=== PATIENT | male | born 1990 | race Caucasian/White ===

== ENCOUNTER 2019-02-23 13:17 | Emergency (ER) | payer MEDICAID, SELFPAY ==
[2019-02-23 13:18] VITALS: BP 125/69; PULSE 92; RESP 18; TEMP 36.6; O2SAT 99; BMI 28.5
[2019-02-23 13:20] VITALS: TEMP 36.6
--- NOTE | 2019-02-23 13:42 | ED.VISSUMM ---
- ER Visit Summary Date of Service: 02/23/19 Chief Complaint: Diarrhea after traveling to [place] History of Present Illness: The patient is a 29 M no significant past medical history. Patient states he traveled to [place] recently orange juice done and some coffee that he thinks he may remain with local water and now diarrhea. Denies any melena. No hematemesis. No fever. Mild abdominal cramping. No prior history. Recently was on amoxicillin for dental infection several weeks ago. Physical Examination: Young male no acute distress. Vital signs stable afebrile. HEENT exam unremarkable. Moist his membranes. Neck nontender. Lungs clear to auscultation bilaterally. Heart regular rhythm no murmur. Abdomen soft and nontender. Normal bowel sounds no peritoneal signs. Moves all 4. No edema. No rashes. Neurologically is awake and alert with no focal motor deficits. Test Results: None Emergency Department Course and Treatment: Discussed with patient that this very well may be traveler's diarrhea. We could do stool cultures a week just to treat him with Cipro 500 twice daily for 5 days which she preferred. Will be given his first dose of Cipro here in the ER. Treatment Plan: Cipro twice daily for 5 days. Plenty fluids and rest. Follow-up if not improving. Return if worse. Disposition: Discharge Impression: Traveler's diarrhea This note was generated with [employer] dictation software. It may contain incorrect words, spelling, and punctuation that were not noted in review of the chart prior to signing ED Disposition - Plan for ED Patient: Referrals: NOT,DEFINED [Primary Care Provider] -
--- NOTE | 2019-02-23 13:47 | ED.DEP ---
ED Disposition - Plan for ED Patient: Disposition: Home or Assisted Living Instructions: DIARRHEA, Bacterial (4y-Adult) Prescriptions: Ciprofloxacin [Cipro] 500 mg PO BID #10 tab Prescription Printed Referrals: Paul Musa MD [STAFF PHYSICIAN] - 3-5 Days if not improving Additional Instructions: Cipro 1 pill twice a day for 5 days. Plenty of fluids and rest. Follow-up with your doctor if not improving return if a lot worse.
[2019-02-23] MEDS: Ciprofloxacin 500 MG Tablet PO (13:55)
== END 2019-02-23 14:00 | disposition home or self-care (01) ==
LOC: ED 13:57
PROVIDERS: Emergency Provider Emergency Medicine
DX: R19.7 Diarrhea, unspecified (principal)
CPT/HCPCS: 99283

== ENCOUNTER 2019-05-27 22:10 | Emergency (ER) | payer MEDICAID, SELFPAY ==
[2019-05-27 22:11] VITALS: BP 156/83; PULSE 88; RESP 16; TEMP 36.3; O2SAT 99; BMI 31.5
--- NOTE | 2019-05-27 22:35 | EKG12_ITS ---
Test Reason : PALPITATIONS Blood Pressure : / mmHG Vent. Rate : 098 BPM Atrial Rate : 098 BPM P-R Int : 158 ms QRS Dur : 092 ms QT Int : 318 ms P-R-T Axes : 058 068 041 degrees QTc Int : 405 ms Normal sinus rhythm Normal ECG Confirmed by JENNIFER ALBERTS, CARISSA ([id number]), editor house organ ABDIAZIZ GOLDEN ([id number]) on 05/31/2019 11:16:43 AM Referred By: Confirmed By:CARISSA RODRIGUEZ MD
--- NOTE | 2019-05-27 22:35 | RAD_ITS ---
STUDY: X-RAY CHEST REASON FOR EXAM: Male, 29 years old. Chest palpitations TECHNIQUE: Single AP portable view of the chest. COMPARISON: None. FINDINGS: The lungs are clear and expanded. There is no demonstrated pleural abnormality. Normal size heart. Normal mediastinum and santos. Normal visualized pulmonary arteries. Normal visualized aortic arch and descending thoracic aorta. Normal visualized thoracic spine. Normal visualized ribs, clavicles, and shoulders. There is no demonstrated abnormality of the visualized soft tissue structures of the upper abdomen. RAD/Chest 1 View (Portable) IMPRESSION: Normal x-ray examination of the chest. Electronically Signed: Osmin Huizar MD at 23:11 EST , Service support ,
--- NOTE | 2019-05-27 22:38 | ED.DCSUM_ITS ---
- ER Visit Summary Date of Service: 05/27/19 Chief Complaint: Palpitation History of Present Illness: The patient is a 29 M presenting with palpitations. Patient states he occasionally has a sensation that his heart skips a beat. He denies chest pain or shortness of breath. He states he has noticed this in the past but today has been more frequent than usual. He had the symptoms and quit drinking caffeine approximately 8 months ago. He states that helped for a while but now the symptoms have returned. He denies alcohol or drug use. He did have recent travel to [place] approximately 1 month ago, no other PE/DVT risk factors. He has a family history of early heart disease, no other CAD risk factors. Physical Examination: Vitals are stable. Patient is afebrile. Alert no acute distress. HEENT exam is unremarkable. Neck is supple. Lungs are clear and equal bilaterally. Heart is regular and tachycardic Abdomen is soft nontender nondistended. Extremities are unremarkable. Skin is warm and dry. No focal neurologic deficit. Remainder of exam is unremarkable. Emergency Department Course and Treatment: Patient was given IV fluids. EKG is sinus rate of 98 with no acute ischemic changes. CBC, chemistries unremarkable. Troponin is negative. D-dimer negative. While in the emergency department, patient has had occasional PVCs. He states this is at the same time as what he has been feeling. Delta troponin is negative. He is advised to follow-up with primary care physician. Advised return to ED for worsening complaints. Disposition: Discharge home Impression: Palpitations This note was generated with [employer] dictation software. It may contain incorrect words, spelling, and punctuation that were not noted in review of the chart prior to signing ED Disposition - Plan for ED Patient: Instructions: Palpitations Referrals: Samuel Gomes III, MD [STAFF PHYSICIAN] - Cecil Beltre MD [STAFF PHYSICIAN] - Care Physician,No Primary [Primary Care Provider] -
[2019-05-27 22:45] LABS: Absolute Lymphocyte Count 2.14 X10^3/uL (0.83-4.51); Absolute Neutrophil Count 4.8 X10^3/uL (2.0-7.7); Basophil# 0.03 X10^3/uL; Basophil% 0.4 % (0-1); Eosinophils% 1.2 % (0-5); Hematocrit 43.9 % (40-54); Hemoglobin 14.8 g/dL (13.0-16.5); Lymphocyte # 2.14 X10^3/ul (4.0); Lymphocyte % 26.5 % (19-41); Mean Corp Hgb Conc 33.7 g/dL (32-36); Mean Corpuscular Hgb 28.8 pg (27.0-32.0); Mean Corpuscular Volume 85.4 fL (80-94); Mean Platelet Vol. 10.7 fl (6.2-12.0); Monocyte# 0.99 X10^3/uL; Monocyte% 12.3 % (0-10); NRBC Flagged by Analyzer 0 % (0-5); Neutrophil % 59.5 % (47-70); Platelet Count 195 K/mm3 (150-450); RBC Distribution Width CV 12.5 % (11.6-14.6); RBC Distribution Width SD 38.6 fl (35.1-43.9); Red Blood Count 5.14 M/mm3 (4.6-6.2); White Blood Count 8.1 K/mm3 (4.4-11.0)
[2019-05-27 22:55] LABS: D-Dimer Quantitative (DVT/PE) 0.43 FEU/ug/m (0.27-0.49)
[2019-05-27] MEDS: 0.9% Normal Saline 1,000 ML 1000 ML IV (22:59)
[2019-05-27 23:20] LABS: Anion Gap 6 (5-15); BUN 19 mg/dL (7-18); BUN/Creat Ratio 16.2 RATIO (10-20); Calcium,Total 8.9 mg/dL (8.5-10.1); Chloride 104 mmol/L (98-107); Creatinine, Serum 1.17 mg/dL (0.70-1.30); EST Glomerular Filtration Rate 77 mL/min (>60); Est Glom Filt Rate - Afr Amer 93 mL/min (>60); Estimated Creatinine Clearance 100.41 ml/min; Glucose 83 mg/dL (74-106); Potassium 3.6 mmol/L (3.5-5.1); Sodium Level 140 mmol/L (136-145)
[2019-05-28 00:11] VITALS: BP 148/82; PULSE 94; RESP 17; O2SAT 97
--- NOTE | 2019-05-28 00:58 | ED.DEP ---
ED Disposition - Plan for ED Patient: Instructions: Palpitations Referrals: Care Physician,No Primary [Primary Care Provider] - Samuel Gomes III, MD [STAFF PHYSICIAN] - Cecil Beltre MD [STAFF PHYSICIAN] -
[2019-05-28 02:20] VITALS: BP 134/84; PULSE 93; RESP 16; O2SAT 96
== END 2019-05-28 02:21 | disposition home or self-care (01) ==
PROVIDERS: Emergency Provider Emergency Medicine
DX: R00.2 Palpitations (principal); I49.3 Ventricular premature depolarization
CPT/HCPCS: 71045; 80048; 84484; 85025; 85379; 93005; 96360; 99284; J7030; A4216

== ENCOUNTER 2020-05-31 18:58 | Emergency (ER) | payer MEDICAID, SELFPAY ==
[2020-05-31 18:59] VITALS: PULSE 109; RESP 16; TEMP 36.8; O2SAT 98; BMI 33.9
[2020-05-31 19:05] VITALS: BP 154/89
[2020-05-31] MEDS: Bupivacaine Mpf 0.5% 30 ML VIAL INFILT (19:26)
--- NOTE | 2020-05-31 19:43 | RAD_ITS ---
STUDY: X-RAY - LEFT HAND, ATTENTION THUMB FINGER REASON FOR EXAM: Male, 30 years old. TRAUMA TO LEFT THUMB FROM SKILL SAW. TECHNIQUE: 3 view(s) of the finger were obtained. COMPARISON: None. FINDINGS: Normal metacarpal head. Normal metacarpophalangeal joint. Normal proximal phalanx. Normal middle phalanx. Acute comminuted compound fracture of the distal phalanx with separation of the fracture fragments.. Normal proximal interphalangeal joint. Normal distal interphalangeal joint. RAD/Finger(s) Min 2 Views IMPRESSION: Acute fracture of the distal phalanx of the thumb Electronically Signed: Sravan Acosta MD at 21:00 EST , Service support ,
--- NOTE | 2020-05-31 20:11 | ED.VIS.GEN ---
History of Present Illness Chief Complaint: Trauma Informant: Patient Onset: Hours Context: Sudden Onset Timing: Continuous Quality: Injury left thumb Location: Dorsal left thumb Current Severity: Moderate Maximum Severity: Moderate Worsened by: Circular saw Relieved by: Nothing will Associated Symptoms: Numbness distal radial tip Narrative: Patient is a 30-year-old [id number] male presents with injury to his left thumb. This happened with a circular saw. He is not immunized. He does not want to be immunized. He does report numbness. He does report pain. He has no history of diabetes and he is not immune suppressed. He is presently on no medication. Prior similar symptoms: No Recent Illness/Hospitalization: No - Past Medical History (1) No significant past medical history Status: Acute Past Medical History - Allergies and Home Meds Allergies/Adverse Reactions: Allergies No Known Allergies Allergy (Verified 05/31/20 19:03) Primary Care Physician: Care Physician,No Primary [Primary Care Provider] - Prior records reviewed: No Past Medical History: None Surgical History: noncontributory Lives: Spouse/ Significant Other Smoking Status: Never smoker Alcohol: None Drugs: None Review of Systems General: Denies: Chills, Fever, Malaise, Subjective Gastrointestinal: Denies: Nausea, Vomiting Musculoskeletal: Reports: Swelling, Extremity Pain. Denies: Myalgias, Arthralgias Neurological: Reports: Parasthesia, Numbness. Denies: Weakness Hematologic: Denies: Easy bruising, Easy bleeding Physical Exam Vital Signs/Narrative: Vital Signs Temp Pulse Resp BP Pulse Ox 05/31/20 19:05 154/89 H 05/31/20 18:59 98.2 F 109 H 16 98 Inital Vital Signs reviewed: Yes General: Well nourished, Well developed Head: Normocephalic, Atraumatic Eyes: Perrl, EOMI. Negative for: Pale conjunctiva, Scleral icterus Neck: Supple, Nontender Cardiovascular: Regular rate Respiratory: No distress Extremities: Tenderness, - - Deformity of left thumb due to circular saw injury Skin: Normal color, Trauma Neurological: Alert, Oriented x3, Cranial nerves II-XII grossly intact, Normal Strength. Negative for: Normal Sensation - Abnormal two-point discrimination distal radial side of left thumb Diagnostic/Tx/Re-eval Chest X-Ray - ED: Read by ED Physician, - - View x-ray reveals a displaced comminuted distal phalanx fracture. - Medical Decision Making Thumb was anesthetized by Palma carpal block. When patient returned he was informed of results and need for repair. He was informed that he has a nailbed injury which requires removal of nail and repair of the nail. The distal tissue may be salvageable may not. He was told he would need to see a hand surgeon as well. He states he wants antibiotics and wants to leave. He understands by leaving and returning tomorrow as he plans that the wound would not be closed at that time. By leaving and not having the appropriate care increases the chance of infection. This may result in prolonged antibiotic administration IV for bone infection. Amputation of part or all of thumb. Significant infection requiring hospitalization for several days. This may lead to more or significant disability. The nurse, Seun, did overhear description of potential significant problems. ED Disposition - Plan for ED Patient: Disposition: Against Medical Advice Diagnosis: Open fracture of distal phalanx of digit of left hand, Nailbed injury Instructions: ED Fx Finger Open Prescriptions: Doxycycline 100 mg PO BID #10 cap Transmission Status: Pending to [facility] metroNIDAZOLE [Flagyl] 500 mg PO Q8H #20 tab Transmission Status: Pending to [facility] Referrals: Care Physician,No Primary [Primary Care Provider] - Renan Perera MD [STAFF PHYSICIAN] - As soon as possible
== END 2020-05-31 22:51 | disposition left against medical advice (07) ==
PROVIDERS: Emergency Provider Emergency Medicine
DX: S62.522B Displaced fracture of distal phalanx of left thumb, initial encounter for open fracture (principal); W29.8XXA Contact with other powered hand tools and household machinery, initial encounter; Y93.9 Activity, unspecified; Y92.9 Unspecified place or not applicable; Y99.9 Unspecified external cause status
CPT/HCPCS: 73140; 99281; 99282